=== PATIENT | male | born 1975 | race African-American/Black ===

== ENCOUNTER 2018-03-31 09:32 | Emergency (ER) | payer OTHER, BC ==
[2018-03-31 10:10] LABS: #Basophils 0.1 thou/uL (0.0-0.2); #Eosinphils 0.1 thou/uL (0.0-0.7); #Monocytes 0.5 thou/uL (0.11-0.59); %Basophils 1.6 % (0.0-1.0); %Eosinophils 1.8 % (0.0-10.0); %Lymphocytes 34.7 % (21.0-51.0); %Monocytes 8.9 % (0.0-10.0); Hemoglobin 15.2 g/dL (14.0-18.0); Mean Corpuscular HGB CONC 34.3 g/dL (32.0-36.0); Mean Corpuscular Hemoglobin 32.3 pg (27.0-31.0); Mean Platelet Volume 9.3 fL (7.4-10.4); Platelet Count 197 thou/uL (130-400); RBC Distribution Width 12.4 % (11.5-14.5); Red Blood Cell (RBC) Count 4.72 mill/uL (4.70-6.10); White Blood Cell (WBC) Count 5.7 thou/uL (4.8-10.8)
[2018-03-31 10:19] LABS: ALT (SGPT) 26 U/L (8-55); AST (SGOT) 27 U/L (5-34); Albumin 4.3 g/dL (3.5-5.0); Alkaline Phosphatase 68 U/L (40-150); Anion Gap 12 mmol/L (10-20); BUN (Urea Nitrogen) 14 mg/dL (8.9-20.6); Bilirubin, Total 0.4 mg/dL (0.2-1.2); Calc. Creatinine Clearance 0 mL/min (70-130); Calcium 9.3 mg/dL (7.8-10.44); Carbon Dioxide 26 mmol/L (22-29); Chloride 104 mmol/L (98-107); Estimated GFR-MDRD Greater than 90; Globulin 3.1 g/dL (2.4-3.5); Glucose 111 mg/dL (70-105); Lipase 43 U/L (8-78); Potassium 3.7 mmol/L (3.5-5.1); Protein, Total 7.4 g/dL (6.0-8.3); Sodium 138 mmol/L (136-145)
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
[2018-03-31] MEDS ORDERED: Ketorolac Tromethamine 30 MG/ML VIAL ONE (11:07)
[2018-03-31] MEDS ORDERED: ISOVUE-370 76%-LOCM 1 ML ONE (11:54)
== END 2018-03-31 11:03 | disposition home or self-care (01) ==
LOC: ERS 09:32
DX: S09.90XA Unspecified injury of head, initial encounter (principal); V59.9XXA Occupant (driver) (passenger) of pick-up truck or van injured in unspecified traffic accident, initial encounter
CPT/HCPCS: 70450; 71045; 71260; 72125; 74177; 80053; 83690; 85025; 96374; G0390; J1885

== ENCOUNTER 2018-06-05 08:03 | Outpatient (CLI) | payer OTHER ==
[2018-06-05] MEDS ORDERED: EPINEPHrine 1 MG/ML AMP ONE (08:25)
[2018-06-05] MEDS ORDERED: Iopamidol 300 61% 50 ML VIAL FS ONE (08:25)
[2018-06-05] MEDS ORDERED: Gadobenate Dimeglumine 529 MG/1 ML (20ML VIAL) ONE (08:25)
[2018-06-05] MEDS ORDERED: Lidocaine 1% PF 10 ML AMP ONE (08:25)
--- NOTE | 2018-06-05 11:41 | RAD ---
LEFT SHOULDER ARTHROGRAM: Date: 8 HISTORY: Labral tear. Pain. EXPOSURE: 0.4 minutes. 36.1 mGy*cm^2. FINDINGS: Three views of the left shoulder demonstrate preservation of the glenohumeral joint space. No fractur e or dislocation. Successful left shoulder arthrogram. A total of 12 mL of contrast admixture was administered in the j oint space. The patient tolerated the procedure well. No immediate postprocedure complication. TECHNIQUE: Consent obtained to perform a left shoulder arthrogram. Left shoulder was prepped and draped in the s terile fashion. 1% lidocaine, buffered with sodium bicarbonate, was used for local anesthesia. Under fluoroscopic guidance, a 22 gauge spinal needle was advanced into the joint space. Contrast was admin istered. A total of 12 mL of the admixture was injected into the joint space. The patient tolerated t he procedure well. No immediate or postprocedure complication. IMPRESSION: Technically successful left shoulder arthrogram. POS: [facility]
--- NOTE | 2018-06-05 12:49 | MRI ---
MR ARTHROGRAM LEFT SHOULDER: Date: 06-05-18 Provided Clinical History: Left shoulder pain. FINDINGS: Evaluation is performed after the intraarticular administration of gadolinium based contrast solution by Dr. Rodriges. Please see separately dictated procedure report. Components of the rotator cuff appear intact. The long head biceps tendon appears intact and normally located. The glenoid labrum and glenohumeral articular cartilage appear normal. There is greater than physiolo gic fluid present within the subacromial subdeltoid bursa, which does not contain gadolinium based co ntrast material. Acromioclavicular joint osteoarthrosis is noted without significant mass effect. The re is lateral downsloping of the acromion, narrowing the subacromial space. IMPRESSION: 1. No evidence for rotator cuff labral tear. 2. Lateral downsloping of the acromion with greater than physiologic subacromial/subdeltoid bursal fl uid suggesting bursitis. Correlate with concerns for impingement. POS: [facility]
== END 2018-06-05 08:04 | disposition home or self-care (01) ==
LOC: RAD 08:03
PROVIDERS: ATTEND Family Medicine
DX: S43.92XD Sprain of unspecified parts of left shoulder girdle, subsequent encounter (principal)
CPT/HCPCS: 23350; A9579; J0171; J7050